=== PATIENT | female | born 1990 | race American Indian/Alaskan Native ===

== ENCOUNTER 2016-12-04 17:40 | Emergency (ER) | payer SELFPAY ==
[2016-12-04 18:00] VITALS: BP 145/81; PULSE 77; RESP 16; TEMP 98.2; O2SAT 98
--- NOTE | 2016-12-04 18:53 | C.PDOC ---
History Of Present Illness 26 year old female presents to the ED with complaints of vague dizziness beginning yesterday. Patient states this is her third ER visit in the last 24 hours for the same complaint. Patient was seen at [facility] last night as well as this morning and had a full workup and EKG performed that were normal. She states she did not receive an adequate explanation of normal tests results at [place] and felt abnormal results were omitted from being mentioned to her. Patient notes she was given meclizine with no improvement and states she felt worse with that medication. She is taking multiple over the counter nasal sprays, flu and cold medications with various adverse effects. Patient denies chest pain, SOB, vomiting, or headache. Time Seen by Provider: 12/04/16 18:31 Chief Complaint (Nursing): Dizziness/Lightheaded Past Medical History Vital Signs: Last Vital Signs Temp 98.2 F 12/04/16 17:57 Pulse 77 12/04/16 17:57 Resp 16 12/04/16 17:57 BP 145/81 12/04/16 17:57 Pulse Ox 98 12/04/16 21:47 Family History: States: Unknown Family Hx - Social History Hx Alcohol Use: No Hx Substance Use: No - Immunization History Hx Tetanus Toxoid Vaccination: No Hx Influenza Vaccination: No Hx Pneumococcal Vaccination: No Physical Exam - Physical Exam Appears: Non-toxic, No Acute Distress (patient appears asymptomatic ), Other ( Anxious black female with pressured speech. Circumloquacious history provided.) Skin: Warm, Dry Head: Atraumatic Eye(s): bilateral: Normal Inspection, PERRL, EOMI Ear(s): Bilateral: Normal Nose: Normal Oral Mucosa: Moist Throat: Normal, No Erythema, No Exudate Neck: Supple Chest: Symmetrical, No Deformity Cardiovascular: Rhythm Regular Respiratory: Normal Breath Sounds, No Rhonchi, No Wheezing Gastrointestinal/Abdominal: Soft, No Tenderness, No Distention, No Guarding, No Rebound Extremity: Normal ROM, No Tenderness, No Calf Tenderness, No Swelling Neurological/Psych: Oriented x3 Gait: Steady (stable gait) ED Course And Treatment O2 Sat by Pulse Oximetry: 98 (room air ) Medical Decision Making Medical Decision Makinrd ED visit in 24 hours, just left [facility] ED normal w/u including normal head CT pt feels she didn't have her normal w/u appropriately explained to her Today's visit with [facility] normal eval pressured speech and circumlocutious history/throughts have me considering underlying anxiety issues vs mild viral syndrome Again, normal w/u thoroughly explained and pt reassured. Pt and friend/partner @ bedside mollified. Disposition Doctor Will See Patient In The: Office Counseled Patient/Family Regarding: Studies Performed, Diagnosis - Disposition Referrals: [facility] [Outside] [facility] [Outside] Disposition: HOME/ ROUTINE Disposition Time: 18:53 Condition: GOOD Additional Instructions: rest and hydration @ home. Advance diet slowly Avoid Meclizine if it makes your more dizzy. Instructions: Viral Syndrome (ED), Dizziness (ED) Forms: [employer] (Ma[place]) - Clinical Impression Clinical Impression: Dizziness - Scribe Statement The provider has reviewed the documentation as recorded by the Scribe Jessica Jackson All medical record entries made by the Scribe were at my direction and personally dictated by me. I have reviewed the chart and agree that the record accurately reflects my personal performance of the history, physical exam, medical decision making, and the department course for this patient. I have also personally directed, reviewed, and agree with the discharge instructions and disposition.
== END 2016-12-04 18:53 | disposition home or self-care (01) ==
LOC: C.ER 17:40
DX: R42 Dizziness and giddiness (principal)

== ENCOUNTER 2016-12-09 10:40 | Inpatient (IN) | payer MEDICAID, OTHER ==
--- NOTE | 2016-12-09 11:02 | C.PDOC ---
History Of Present Illness Patient is a 26 y/o F presenting with complaint "shaking legs." Patient reports 1 week history of dizziness and lighthededness that she reports is now resolved. She was been evaluated in [facility] 5 times since 12/03 for lightheadedness and dizziness and has had negative CT head x 2, negative blood work and xrays and was discharged on meclizine. She has also had MRI head done at [facility] that was normal. She saw her PMD Dr. Hsu today who referred her to ED for worsening gait. Denies urinary or bowel incontinence. Denies trauma. Denies neck pain. Denies fever. Denies recent travel. Time Seen by Provider: 12/09/16 10:51 Chief Complaint (Nursing): Weakness/Neurological Deficit Past Medical History Vital Signs: Last Vital Signs Temp 98.4 F 12/09/16 10:44 Pulse 69 12/09/16 10:44 Resp 18 12/09/16 10:44 BP 130/92 H 12/09/16 10:44 Pulse Ox 100 12/09/16 12:10 Family History: States: Unknown Family Hx - Social History Hx Alcohol Use: Yes Hx Substance Use: No - Immunization History Hx Tetanus Toxoid Vaccination: No Hx Influenza Vaccination: No Hx Pneumococcal Vaccination: No Review Of Systems Constitutional: Negative for: Fever, Chills Cardiovascular: Negative for: Chest Pain, Palpitations, Orthopnea, Edema, Light Headedness Respiratory: Negative for: Cough, Shortness of Breath, SOB with Excertion, Wheezing Gastrointestinal: Negative for: Nausea, Vomiting, Abdominal Pain, Diarrhea, Constipation Genitourinary: Negative for: Dysuria, Incontinence Musculoskeletal: Negative for: Neck Pain Neurological: Positive for: Incoordination (shaking of legs with ambulation). Negative for: Weakness, Numbness, Change in Speech, Seizures, Altered Mental Status, Headache, Dizziness Physical Exam - Physical Exam Appears: Well, Non-toxic, No Acute Distress Skin: Normal Color, Warm, Dry Head: Atraumatic, Normacephalic Eye(s): bilateral: Normal Inspection, PERRL, EOMI Neck: Normal, Supple Chest: Symmetrical Cardiovascular: Rhythm Regular Respiratory: Normal Breath Sounds, No Rales, No Rhonchi, No Wheezing Gastrointestinal/Abdominal: Soft, No Tenderness, No Distention Back: Normal Inspection, No CVA Tenderness Extremity: Normal ROM, No Tenderness, Other (normal strength when lying in stretcher. ) Pulses: Left Dorsalis Pedis: Normal, Right Dorsalis Pedis: Normal Neurological/Psych: Oriented x3, Normal Speech, Normal Cognition, Normal Cranial Nerves, Normal Motor (full strength), Normal Sensation, Other (normal finger to nose) Gait: Unsteady (shaking of legs with ambulating. shaking resolves when standing. ) ED Course And Treatment - Laboratory Results Result Diagrams: 12/09/16 11:30 12/09/16 11:30 O2 Sat by Pulse Oximetry: 100 Medical Decision Making Medical Decision Making: Patient is complaining of changes in gait. Normal strength when standing and lying down but shaking of legs when ambulating. Otherwise neuro intact. Extensive workup including MRI head negative. Spoke to Dr. Hsu. He is requesting neuro consult (Dr. Elena) to evaluate if there is organic cause for symptoms. Requesting MRI lumbar and sacral spine. Disposition - Disposition Disposition: HOSPITALIZED Disposition Time: 10:44 Condition: FAIR - Clinical Impression Clinical Impression: Gait abnormality
[2016-12-09] MEDS ORDERED: Sodium Chloride 0.9% 1,000 ML IV ONE (11:05)
[2016-12-09 11:36] LABS: BASO % 1.2 % (0.0-2.0); EOS # 0.1 K/uL (0.0-0.7); EOS % 1.7 % (0.0-4.0); HEMATOCRIT 39.2 % (34.0-47.0); LYMPH # 1.8 K/uL (1.0-4.3); LYMPH % 44.5 % (20.0-40.0); MEAN CELL VOLUME 89.7 fL (81.0-99.0); MEAN CORPUSCULAR HGB CONC 33.5 g/dL (33.0-37.0); MEAN PLATELET VOLUME 9.5 fL (7.2-11.7); MONO # 0.4 K/uL (0.0-0.8); MONO % 10.1 % (0.0-10.0); NRBC % 0.1 % (0.0-2.0); WHITE BLOOD COUNT 3.9 K/uL (4.8-10.8)
[2016-12-09 11:46] LABS: RBC URINE 8 /hpf (0-3); URINE BILIRUBIN NEGATIVE (NEGATIVE); URINE BLOOD 1+ (NEGATIVE); URINE COLOR Yellow (YELLOW); URINE GLUCOSE (UA) NORMAL (Normal); URINE KETONE NEGATIVE (NEGATIVE); URINE LEUKOCYTE ESTERASE NEG Leu/uL (Negative); URINE PROTEIN NEGATIVE (NEGATIVE); URINE UROBILINOGEN NORMAL mg/dL (0.2-1.0); WBC URINE 2 /hpf (0-5)
[2016-12-09 11:49] LABS: ALB/GLOB RATIO 1.1 (1.0-2.1); ALKALINE PHOSPHATASE 94 U/L (38-126); ALT/SGPT 42 U/L (9-52); AST/SGOT 42 U/L (14-36); BILIRUBIN,TOTAL 0.6 mg/dL (0.2-1.3); BLOOD UREA NITROGEN 4 mg/dL (7-17); CARBON DIOXIDE 25 mmol/L (22-30); CHLORIDE 101 mmol/L (98-107); GFR AFRICAN-AMERICAN > 60; GLUCOSE,RANDOM 94 mg/dL (65-105); MAGNESIUM 1.7 mg/dL (1.6-2.3); PHOSPHOROUS 3.7 mg/dL (2.5-4.5); POTASSIUM 4.4 mmol/L (3.6-5.2); SODIUM 140 mmol/L (132-148); TOTAL PROTEIN 8.1 g/dL (6.3-8.3)
--- NOTE | 2016-12-09 14:40 | MRI ---
PROCEDURE: MR LUMBAR SPINE WITHOUT CONTRAST HISTORY: difficulty walking COMPARISON: None available. TECHNIQUE: Multiecho multiplanar sequences were performed through the lumbar spine without the use of intravenous contrast. FINDINGS: Normal lumbar curvature appreciate. There is no fracture or spondylolisthesis or suspicious marrow signal change appreciated vertebral bodies are normal in height. L5-S1 intervertebral disc space is slightly diminished in height but the intervertebral discs appear adequately hydrated nevertheless. Conus medullaris is normal terminating at T12-L1 disc interspace level with prevertebral paraspinal soft tissues appear diffusely unremarkable. T12-L1: No disc herniation, spinal canal stenosis or neural foraminal narrowing. L1-2: No disc herniation, spinal canal stenosis or neural foraminal narrowing. L2-3: No disc herniation, spinal canal stenosis or neural foraminal narrowing. L3-4: No disc herniation, spinal canal stenosis or neural foraminal narrowing. L4-5: No disc herniation, spinal canal stenosis or neural foraminal narrowing. Limited disc bulging is appreciated as well as mild facet joint degenerate change bilaterally. L5-S1: No disc herniation, spinal canal stenosis or neural foraminal narrowing. Limited disc bulging is appreciate without stenosis. Bilateral mild facet joint degenerative arthropathy is also identified. OTHER FINDINGS: None. IMPRESSION: No disc herniation, central canal or neural foraminal stenosis appreciated with limited disc bulging noted at L4-5 as well as L5-S1. Central canal appears widely patent throughout.
[2016-12-09] MEDS ORDERED: MethylPREDNISolone 40 mg Vial IVP STA (16:21)
[2016-12-10 06:23] LABS: BASO % 0.2 % (0.0-2.0); LYMPH # 1.8 K/uL (1.0-4.3); LYMPH % 29.7 % (20.0-40.0); MEAN CELL VOLUME 88.6 fL (81.0-99.0); MEAN CORPUSCULAR HEMOGLOBIN 30.3 pg (27.0-31.0); MEAN CORPUSCULAR HGB CONC 34.2 g/dL (33.0-37.0); MEAN PLATELET VOLUME 9.9 fL (7.2-11.7); MONO # 0.6 K/uL (0.0-0.8); MONO % 9.5 % (0.0-10.0); RED CELL DISTRIBUTION WIDTH 14.2 % (11.5-14.5); WHITE BLOOD COUNT 6.1 K/uL (4.8-10.8)
[2016-12-10 06:37] LABS: ALB/GLOB RATIO 1.3 (1.0-2.1); ALKALINE PHOSPHATASE 83 U/L (38-126); ALT/SGPT 47 U/L (9-52); AST/SGOT 41 U/L (14-36); BILIRUBIN,TOTAL 0.3 mg/dL (0.2-1.3); BLOOD UREA NITROGEN 5 mg/dL (7-17); CALCIUM 9.5 mg/dl (8.6-10.4); CARBON DIOXIDE 25 mmol/L (22-30); CHLORIDE 101 mmol/L (98-107); GFR AFRICAN-AMERICAN > 60; GLUCOSE,RANDOM 111 mg/dL (65-105); POTASSIUM 4.4 mmol/L (3.6-5.2); SODIUM 138 mmol/L (132-148); TOTAL PROTEIN 7.4 g/dL (6.3-8.3)
--- NOTE | 2016-12-10 07:51 | CON ---
DATE: 12/09/2016 LOCATION: The patient is in room number 350, bed 1. REASON FOR CONSULTATION: Intractable back pain. CHIEF COMPLAINT: The patient was brought into [facility] due to her shaky legs and weakness of the legs. From neurological point of view, I was called in to evaluate her for further management. HISTORY OF PRESENT ILLNESS: The patient is a 26-year-old right-handed -[place] female, presenting with a 10 days' history of dizziness and visual disturbances which was resolved. She went to [facility], there she had MRI of the brain, and she was discharged, and also she did have ENT evaluation as well. She was discharged with no diagnosis. She developed lower back pain. She claims that lower back pain with weakness of her legs with inability to walk. No history of headache. No history of neck pain. No history of significant back pain. No history of bowel or bladder incontinence. No history of fall. No history of previous trauma. No history of involuntary movement or loss of consciousness. No history of recent travel. No history of recent vaccination or blood transfusion. PAST MEDICAL HISTORY: Unremarkable. PERSONAL HISTORY: Denies smoking, alcohol use. No history of using illicit drugs. 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 REVIEW OF SYSTEMS: A 12-point system been reviewed. From neurological system, the patient does have shaky legs as well as weakness of her legs. MEDICATIONS: Famotidine. PHYSICAL EXAMINATION VITAL SIGNS: Blood pressure 126/79, mean arterial pressure of 94, respiratory rate 18, temperature 98.4, pulse rate 71, regular. NECK: Supple. No carotid bruits. HEART: S1 and S2. LUNGS: Fair air entry. EXTREMITIES: No edema in legs. NEUROLOGICAL: Mental status examination, she is examined in the presence of her friends. She is awake, alert, and oriented to person, place, and time. She is very cooperative in spite of her discomfortness, she does not show any emotional effect from her problem. Cranial nerve examination, visual field intact. Pupils reactive to light. Extraocular movement normal. No nystagmus. No facial sensory deficit. No facial asymmetry. Hearing is normal. Tongue is midline. Good gag. Motor examination, on outstretched hand, tremor on either side. In the lower extremities, iliopsoas, quadriceps, the hamstring, dorsiflexion, and plantarflexion of the foot all 5/5. Deep tendon reflexes, biceps, brachioradialis, triceps 1+, both knees are 2+, both ankles are 1+, trace. Plantars are downgoing. Sensory examination, grossly intact. No cortical sensory loss. Finger-nose test is intact. Gait, she was able to get up, but she could not able to stand straight. She stands with the knee bent and could not able to walk forward. On closing her eyes, she stays still in one place. She claims that she could not able to walk due to the pain and weakness. However, she does not fall on either side or tend to fall on either side. Examination of the spine, no tenderness noted. LABORATORY DATA: Workup, MRI of the brain, R/Ot any structural cause that could explain her problem. Blood workup, WBC 3.9, hemoglobin 13.1, hematocrit 39.2, platelet 218. Sodium 140, potassium 4.4, chloride 101, bicarbonate 25, BUN 4, creatinine 0.7, GFR more than 60, bilirubin 0.6, AST 48. Urine shows 1+ blood. Urine hCG is negative. RECOMMENDATION: 1. The patient should have urine tox screen. 2. The patient can be benefited with nonsteroidal antiinflammatory drugs with muscle relaxants. I do not think she needs any further workup. Reassurance was given. The patient advised to attempt to get out of the bed and walk with supervision. Maybe the patient can get Valium tonight to relieve her muscle spasm. Jesus Elena MD MTDD
--- NOTE | 2016-12-10 09:56 | CON ---
DATE OF EVALUATION: 12/10/2016 TIME OF EVALUATION: 06:55 a.m. NEUROLOGICAL PROBLEM: Intractable back pain and weakness of her leg. SUBJECTIVE: The patient is sleeping, easily arousable on calling her name; complaining of lower back pain. She did not get sleep until 12 o'clock. At present, she denies any new weakness of her legs. PHYSICAL EXAMINATION: VITAL SIGNS: Blood pressure 112/72, mean arterial pressure of 85, respiratory rate 18, temperature 98.2, pulse rate 71, regular. Examination is unchanged to compare with my yesterday's examination. BLOOD WORKUP: C-reactive protein is 2.85. No sign of infectious source. The rest of the workup is in progress. MEDICATIONS: She can be taken symptomatic relief from nonsteroidal antiinflammatory drug, muscle relaxant. If medically stable, the patient can be discharged and should have followup with me as an outpatient. Jesus Elena MD
[2016-12-10] MEDS: Naproxen 550 mg Tab PO PRN (12:09)
--- NOTE | 2016-12-11 13:08 | CP.PCM.PN ---
Subjective - Date & Time of Evaluation Date of Evaluation: 12/11/16 Time of Evaluation: 13:08 Objective - Vital Signs/Intake and Output Vital Signs (last 24 hours): Temp Pulse Resp BP Pulse Ox 98 F 83 20 108/67 100 12/11/16 09:02 12/11/16 09:02 12/11/16 09:02 12/11/16 09:02 12/11/16 09:02 Intake and Output: 12/11/16 12/11/16 06:59 18:59 Intake Total 360 180 Balance 360 180 - Medications Medications: Current Medications Baclofen (Lioresal) 10 mg PO DAILY [facility] Cyclobenzaprine HCl (Flexeril) 5 mg PO BID [facility] Last Admin: 12/11/16 10:39 Dose: 5 mg Diazepam (Valium) 5 mg PO HS [facility] Last Admin: 12/10/16 22:15 Dose: 5 mg Famotidine (Pepcid) 20 mg IVP Q12 [facility] Last Admin: 12/11/16 10:38 Dose: 20 mg Naproxen (Anaprox Ds) 550 mg PO TID PRN Last Admin: 12/10/16 12:09 Dose: 550 mg Pneumococcal Polyvalent Vaccine (Pneumovax 23 Vaccine) 0.5 ml IM .ONCE ONE Stop: 12/12/16 10:01 - Labs Labs: 12/10/16 06:15 12/10/16 06:15
[2016-12-12 07:09] LABS: HEMATOCRIT 36.8 % (34.0-47.0); MEAN CELL VOLUME 89.6 fL (81.0-99.0); MEAN CORPUSCULAR HEMOGLOBIN 29.9 pg (27.0-31.0); MEAN CORPUSCULAR HGB CONC 33.3 g/dL (33.0-37.0); MEAN PLATELET VOLUME 9.5 fL (7.2-11.7); RED CELL DISTRIBUTION WIDTH 14.4 % (11.5-14.5); WHITE BLOOD COUNT 6.7 K/uL (4.8-10.8)
[2016-12-12 07:19] LABS: BLOOD UREA NITROGEN 11 mg/dL (7-17); CALCIUM 9.3 mg/dl (8.6-10.4); CARBON DIOXIDE 28 mmol/L (22-30); CHLORIDE 101 mmol/L (98-107); GFR AFRICAN-AMERICAN > 60; GLUCOSE,RANDOM 87 mg/dL (65-105); SODIUM 137 mmol/L (132-148)
[2016-12-12 07:48] LABS: THYROID STIMULATING HORMONE 1.09 mIU/L (0.46-4.68)
[2016-12-12] MEDS ORDERED: Pneumococcal 23-Valent Vaccine IM ONE (10:00)
[2016-12-13 08:46] VITALS: RESP 20
--- NOTE | 2016-12-13 14:49 | PCM.PSYCH ---
Initial Psychiatric Evaluation - Initial Psychiatric Evaluation Type of Admission: Voluntary Legal Status: Capacity Chief Complaint (in patient's own words): "Dizzy" History of Present Illness and Precipitating Events: The pt is seen, chart reviewed and case discussed Consult was asked to rule out pyschogenic causes This is a 26 yo AAF, single with 2 children aged 9 and 11 (one with MGM, the pther w father) She says she is now unemployed bc she had to leave her job due to an eczema- like lesion in her hands (not present now) and that she had applied to disability but denied. Lives alone with 2 children She admits to having panic attacks and mild depressive sxs but she has vague somatic sxs too - numbness, weakness, aches and pains. She denies SI, AVH or delusions She also denies drug, alcohol use but smokes MJ sometimes. Sleeps poorly Her stressors are unemployment, money and her BF's murder few years ago. Past psych hx: Denies Medical hx: Denies Family psych hx: Denies Current Medications: Active Medications Generic Name Dose Route Start Last Admin Trade Name Freq PRN Reason Stop Dose Admin Baclofen 10 mg 12/11/16 13:15 12/13/16 09:35 Lioresal PO 10 mg DAILY [facility] Administration Diazepam 5 mg 12/09/16 22:00 12/12/16 21:45 Valium PO 5 mg HS [facility] Administration Famotidine 20 mg 12/11/16 22:00 12/13/16 09:35 Pepcid PO 20 mg Q12 [facility] Administration Naproxen 550 mg 12/10/16 10:00 12/10/16 12:09 Anaprox Ds PO 550 mg TID PRN Administration Past Psychiatric History - Past Psychiatric History Previous Treatment History: None Pertinent Medical Hx (Current Medical&Sleep Prob, Allergies): Allergies Allergy/AdvReac Type Severity Reaction Status Date / Time No Known Allergies Allergy Verified 12/08/16 00:51 Macrobid 1 tab PO BID 12/09/16 Review of Systems - Neurological Neurological: Weakness - Psychiatric Psychiatric: Abnormal Sleep Pattern, Anxiety. absent: Homicidal Ideation, Paranoia, Suicidal Ideation Mental Status Examination - Personal Presentation Personal Presentation: Looks stated age - Affect Affect: Constricted - Motor Activity Motor Activity: Calm - Reliability in Providing Information Reliability in Providing Information: Good - Speech Speech: Organized - Mood Mood: Anxious - Formal Thought Process Formal Thought Process: No Impairment - Cognitive Functions Orientation: Person, Place, Situation, Time Sensorium: Alert Attention/Concentration: Attentive Estimate of Intelligence: Average Judgement: Intact, as evidence by: Insight regarding need for hospitalization Memory: Recent intact, as evidence by: Ability to recall events of the day, Remote intact, as evidenced by: Abilit to recall sig. 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
--- NOTE | 2016-12-13 20:27 | CP.PCM.HP ---
History of Present Illness - History of Present Illness History of Present Illness: Chief complaint: Unable to walk History present illness: 26-year-old with no past medical history came to the office yesterday with the complaining of not able to walk. Gradually over the course of 1 month the patient has increasing symptoms of leg cramps, leg pain, and not able to stand up and walk properly. Patient went to the emergency room multiple times at [facility]. And the patient underwent extensive workup. But there was no organic disease identified. Patient was given pain medications. Also was noted to have UTI. Patient did not have any headache, no chest pain. She did not have any other major active symptoms. Prior to this episode of patient was normal, and she was doing her activities normally. All of a sudden she developed this trouble. She is having sensation in the legs. But unable to stand up and walk. When she is walking she is bending the hips as well as in the knees, and wobbling. Past medical history none Allergies: No known drug allergy Personal history: Nonsmoker nonalcoholic. Surgical history . Family history significant for heart disease Review of system: Notified from the chart Vital signs reviewed No neck vein distention noted Chest good air entry bilaterally, no wheezing or rales noted CVS regular heart sound, no murmur noted Abdomen soft, nontender. Extremities no pedal edema [employer] SCIENT[employer] alert awake oriented 3, no functional neurological deficit Ambulation is extremely difficult. When lying down patient is having some tremor. 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 Neurologic evaluation, a lumbosacral MRI. Patient medications. Physical therapy will follow the patient Present on Admission - Present on Admission Any Indicators Present on Admission: No History of DVT/PE: No History of Uncontrolled Diabetes: No Urinary Catheter: No Decubitus Ulcer Present: No Past Patient History - Infectious Disease Hx of Infectious Diseases: None - Past Medical History & Family History Past Medical History?: No - Past Social History Smoking Status: quit 10day - MUSCULOSKELETAL/RHEUMATOLOGICAL Hx Falls: No - PSYCHIATRIC Hx Substance Use: No - SURGICAL HISTORY Hx Surgeries: Yes Hx Section: Yes (x2) - ANESTHESIA Hx Anesthesia: Yes Hx Anesthesia Reactions: No Hx Malignant Hyperthermia: No Meds Allergies/Adverse Reactions: Allergies Allergy/AdvReac Type Severity Reaction Status Date / Time No Known Allergies Allergy Verified 12/08/16 00:51 Results - Vital Signs Recent Vital Signs: Last Vital Signs Temp 98.8 F 12/13/16 15:00 Pulse 71 12/13/16 15:00 Resp 20 12/13/16 15:00 BP 112/84 12/13/16 15:00 Pulse Ox 99 12/13/16 15:00 - Labs Result Diagrams: 12/12/16 07:01 12/12/16 07:01
--- NOTE | 2016-12-13 20:28 | CP.PCM.PN ---
Subjective - Date & Time of Evaluation Date of Evaluation: 12/12/16 Time of Evaluation: 20:28 - Subjective Subjective: Still continues to have the similar symptoms. Neurological point of view patient is stable. Patient still needing ambulation with the walker. Physical therapy No pain. Patient is otherwise feeling better. Awaiting for psychiatric consultation Objective - Vital Signs/Intake and Output Vital Signs (last 24 hours): Temp Pulse Resp BP Pulse Ox 98.8 F 71 20 112/84 99 12/13/16 15:00 12/13/16 15:00 12/13/16 15:00 12/13/16 15:00 12/13/16 15:00 Intake and Output: 12/13/16 12/14/16 18:59 06:59 Intake Total 680 Balance 680 - Medications Medications: Current Medications Baclofen (Lioresal) 10 mg PO DAILY [facility] Last Admin: 12/13/16 09:35 Dose: 10 mg Clonazepam (Klonopin) 0.5 mg PO DAILY PRN PRN Reason: Anxiety Famotidine (Pepcid) 20 mg PO Q12 [facility] Last Admin: 12/13/16 09:35 Dose: 20 mg Naproxen (Anaprox Ds) 550 mg PO TID PRN Last Admin: 12/10/16 12:09 Dose: 550 mg Sertraline HCl (Zoloft) 25 mg PO DAILY [facility] Last Admin: 12/13/16 16:49 Dose: 25 mg Trazodone HCl (Desyrel) 50 mg PO HS [facility] - Labs Labs: 12/12/16 07:01 12/12/16 07:01
--- NOTE | 2016-12-13 20:28 | CP.PCM.PN ---
Subjective - Date & Time of Evaluation Date of Evaluation: 12/11/16 Time of Evaluation: 20:28 - Subjective Subjective: Still continues to have the similar symptoms. Neurological point of view patient is stable. Patient still needing ambulation with the walker. Physical therapy No pain. Patient is otherwise feeling better. Awaiting for psychiatric consultation Objective - Vital Signs/Intake and Output Vital Signs (last 24 hours): Temp Pulse Resp BP Pulse Ox 98.8 F 71 20 112/84 99 12/13/16 15:00 12/13/16 15:00 12/13/16 15:00 12/13/16 15:00 12/13/16 15:00 Intake and Output: 12/13/16 12/14/16 18:59 06:59 Intake Total 680 Balance 680 - Medications Medications: Current Medications Baclofen (Lioresal) 10 mg PO DAILY [facility] Last Admin: 12/13/16 09:35 Dose: 10 mg Clonazepam (Klonopin) 0.5 mg PO DAILY PRN PRN Reason: Anxiety Famotidine (Pepcid) 20 mg PO Q12 [facility] Last Admin: 12/13/16 09:35 Dose: 20 mg Naproxen (Anaprox Ds) 550 mg PO TID PRN Last Admin: 12/10/16 12:09 Dose: 550 mg Sertraline HCl (Zoloft) 25 mg PO DAILY [facility] Last Admin: 12/13/16 16:49 Dose: 25 mg Trazodone HCl (Desyrel) 50 mg PO HS [facility] - Labs Labs: 12/12/16 07:01 12/12/16 07:01
--- NOTE | 2016-12-13 20:28 | CP.PCM.PN ---
Subjective - Date & Time of Evaluation Date of Evaluation: 12/13/16 Time of Evaluation: 20:28 - Subjective Subjective: Patient seen by psychiatrist today. On medications Patient is still having symptoms. We'll continue to monitor now. Overall prognosis is guarded. Vital signs reviewed No neck vein distention noted Chest good air entry bilaterally, no wheezing or rales noted CVS regular heart sound, no murmur noted Abdomen soft, nontender. Extremities no pedal edema [employer] alert awake oriented 3, no functional neurological deficit Vitals stable. Repeat labs in the morning. Possible discharge planning the morning Objective - Vital Signs/Intake and Output Vital Signs (last 24 hours): Temp Pulse Resp BP Pulse Ox 98.8 F 71 20 112/84 99 12/13/16 15:00 12/13/16 15:00 12/13/16 15:00 12/13/16 15:00 12/13/16 15:00 Intake and Output: 12/13/16 12/14/16 18:59 06:59 Intake Total 680 Balance 680 - Medications Medications: Current Medications Baclofen (Lioresal) 10 mg PO DAILY ON LICENSE OF [facility] Last Admin: 12/13/16 09:35 Dose: 10 mg Clonazepam (Klonopin) 0.5 mg PO DAILY PRN PRN Reason: Anxiety Famotidine (Pepcid) 20 mg PO Q12 ON LICENSE OF [facility] Last Admin: 12/13/16 09:35 Dose: 20 mg Naproxen (Anaprox Ds) 550 mg PO TID PRN Last Admin: 12/10/16 12:09 Dose: 550 mg Sertraline HCl (Zoloft) 25 mg PO DAILY ON LICENSE OF [facility] Last Admin: 12/13/16 16:49 Dose: 25 mg Trazodone HCl (Desyrel) 50 mg PO HS ON LICENSE OF [facility] - Labs Labs: 12/12/16 07:01 12/12/16 07:01
[2016-12-14 07:09] LABS: MEAN CORPUSCULAR HEMOGLOBIN 30.3 pg (27.0-31.0); MEAN CORPUSCULAR HGB CONC 34.1 g/dL (33.0-37.0); MEAN PLATELET VOLUME 9.4 fL (7.2-11.7); RED CELL DISTRIBUTION WIDTH 14.1 % (11.5-14.5); WHITE BLOOD COUNT 5.9 K/uL (4.8-10.8)
[2016-12-14 07:48] LABS: CHLORIDE 102 mmol/L (98-107); POTASSIUM 3.8 mmol/L (3.6-5.2); SODIUM 138 mmol/L (132-148)
[2016-12-14 07:50] LABS: ALKALINE PHOSPHATASE 86 U/L (38-126); AST/SGOT 74 U/L (14-36); BILIRUBIN,TOTAL 0.3 mg/dL (0.2-1.3); CARBON DIOXIDE 27 mmol/L (22-30); GFR AFRICAN-AMERICAN > 60
[2016-12-14 07:51] LABS: ALB/GLOB RATIO 1.2 (1.0-2.1); ALT/SGPT 82 U/L (9-52); BLOOD UREA NITROGEN 9 mg/dL (7-17); CALCIUM 8.7 mg/dl (8.6-10.4); GLUCOSE,RANDOM 87 mg/dL (65-105); MAGNESIUM 1.7 mg/dL (1.6-2.3); TOTAL PROTEIN 6.3 g/dL (6.3-8.3)
--- NOTE | 2016-12-14 21:27 | CP.PCM.PN ---
Subjective - Date & Time of Evaluation Date of Evaluation: 12/14/16 Time of Evaluation: 21:26 - Subjective Subjective: Today feeling much better. But the dizziness noted. Able to stand up. Still unable to walk good. Participated physical therapy. Vital signs reviewed No neck vein distention noted Chest good air entry bilaterally, no wheezing or rales noted CVS regular heart sound, no murmur noted Abdomen soft, nontender. Extremities no pedal edema [employer] alert awake oriented 3, no functional neurological deficit Labs reviewed Nonspecific mild elevation of the liver enzymes will monitor Bilateral leg weakness, and nonspecific. Mild clonus. On multiple muscle relaxants and pain medicines. Will follow the patient Objective - Vital Signs/Intake and Output Vital Signs (last 24 hours): Temp Pulse Resp BP Pulse Ox 98.4 F 71 20 119/74 99 12/14/16 15:00 12/14/16 15:00 12/14/16 15:00 12/14/16 15:00 12/14/16 15:00 Intake and Output: 12/14/16 12/15/16 18:59 06:59 Intake Total 480 Output Total 0 Balance 480 - Medications Medications: Current Medications Famotidine (Pepcid) 20 mg PO Q12 [facility] Last Admin: 12/14/16 21:23 Dose: 20 mg Naproxen (Anaprox Ds) 550 mg PO TID PRN Last Admin: 12/10/16 12:09 Dose: 550 mg Sertraline HCl (Zoloft) 25 mg PO DAILY [facility] Last Admin: 12/14/16 12:44 Dose: 25 mg Trazodone HCl (Desyrel) 50 mg PO HS [facility] Last Admin: 12/14/16 21:23 Dose: 50 mg - Labs Labs: 12/14/16 07:03 12/14/16 07:03
[2016-12-15 19:17] LABS: LYME IGM EQUIVOCAL (NEGATIVE)
[2016-12-15 19:41] LABS: LYME IGG NEGATIVE (NEGATIVE)
--- NOTE | 2016-12-16 07:51 | CP.PCM.PN ---
Subjective - Date & Time of Evaluation Date of Evaluation: 12/15/16 Time of Evaluation: 07:51 - Subjective Subjective: Is still feeling some symptoms of weakness in the legs. Walking is still lacking Clinical examination stable Assessment and recommendation: 26-year-old female came to the office and admitted to the hospital with the worsening bilateral leg weakness. And physical therapy will be continued for possible discharge plan once is stable Objective - Vital Signs/Intake and Output Vital Signs (last 24 hours): Temp Pulse Resp BP Pulse Ox 97.8 F 115 H 20 105/70 100 12/16/16 07:41 12/16/16 07:41 12/16/16 07:41 12/16/16 07:41 12/16/16 07:41 Intake and Output: 12/16/16 12/16/16 06:59 18:59 Intake Total 700 Balance 700 - Medications Medications: Current Medications Famotidine (Pepcid) 20 mg PO Q12 [facility] Last Admin: 12/15/16 21:12 Dose: 20 mg Naproxen (Anaprox Ds) 550 mg PO TID PRN Last Admin: 12/10/16 12:09 Dose: 550 mg Sertraline HCl (Zoloft) 50 mg PO DAILY [facility] Trazodone HCl (Desyrel) 50 mg PO HS [facility] Last Admin: 12/15/16 21:12 Dose: 50 mg - Labs Labs: 12/14/16 07:03 12/14/16 07:03
--- NOTE | 2016-12-16 12:11 | CP.PCM.PN ---
Subjective - Date & Time of Evaluation Date of Evaluation: 12/16/16 Time of Evaluation: 12:11 - Subjective Subjective: Is still feeling some symptoms of weakness in the legs. Walking is still lacking Clinical examination stable Assessment and recommendation: 26-year-old female came to the office and admitted to the hospital with the worsening bilateral leg weakness. And physical therapy will be continued for possible discharge plan once is stable Objective - Vital Signs/Intake and Output Vital Signs (last 24 hours): Temp Pulse Resp BP Pulse Ox 97.8 F 115 H 20 105/70 100 12/16/16 07:41 12/16/16 07:41 12/16/16 07:41 12/16/16 07:41 12/16/16 07:41 Intake and Output: 12/16/16 12/16/16 06:59 18:59 Intake Total 700 Balance 700 - Medications Medications: Current Medications Famotidine (Pepcid) 20 mg PO Q12 [facility] Last Admin: 12/16/16 10:45 Dose: 20 mg Naproxen (Anaprox Ds) 550 mg PO TID PRN Last Admin: 12/10/16 12:09 Dose: 550 mg Sertraline HCl (Zoloft) 50 mg PO DAILY [facility] Last Admin: 12/16/16 10:45 Dose: 50 mg Trazodone HCl (Desyrel) 50 mg PO HS [facility] Last Admin: 12/15/16 21:12 Dose: 50 mg - Labs Labs: 12/14/16 07:03 12/14/16 07:03
--- NOTE | 2016-12-17 09:43 | EEG ---
Resting electroencephalogram consist of 20-30 microvolt diffuse low-amplitude delta activities started in the beginning, which followed with 9 to 12 Hz sleep spindle activities noted with K-complexes consistent with N2 sleep. Noted this activity is somewhat organized to form 2-3 Hz high-amplitude delta activity seen which is consistent with early drowsiness. The whole study started from light drowsiness with N2 sleep. During the study, neither electroencephalographic paroxysmal activities nor focal slowing noted. IMPRESSION: This is a normal electroencephalogram of awake, drowsy and N2 sleep. During the study, neither electroencephalographic paroxysmal activities nor focal slowing noted. Jesus Elena MD
[2016-12-17] MEDS: Naproxen 550 mg Tab PO PRN (11:15)
--- NOTE | 2016-12-17 17:42 | CT ---
PROCEDURE: CT HEAD WITHOUT CONTRAST. HISTORY: weakness, blurry vision, headache COMPARISON: None available. TECHNIQUE: Axial computed tomography images were obtained through the head/brain without intravenous contrast. Radiation dose: Total exam DLP = 833.83 mGy-cm. This CT exam was performed using one or more of the following dose reduction techniques: Automated exposure control, adjustment of the mA and/or kV according to patient size, and/or use of iterative reconstruction technique. FINDINGS: HEMORRHAGE: No intracranial hemorrhage. BRAIN: No mass effect or edema. No atrophy or chronic microvascular ischemic changes. VENTRICLES: Unremarkable. No hydrocephalus. CALVARIUM: Unremarkable. PARANASAL SINUSES: Unremarkable as visualized. No significant inflammatory changes. MASTOID AIR CELLS: Unremarkable as visualized. No inflammatory changes. OTHER FINDINGS: None. IMPRESSION: No acute intracranial abnormalities. No significant findings to account for the clinical presentation.
--- NOTE | 2016-12-17 18:36 | CP.PCM.PN ---
Subjective - Date & Time of Evaluation Date of Evaluation: 12/17/16 Time of Evaluation: 09:30 - Subjective Subjective: Medicine Note- Hospitalist Service Patient was seen and examined at bedside. Patient reports that she feels that her legs are getting stronger. She is able to walk with assistance but is having with walking on stairs. Patient reports she has had a continuous headache for the past 2 days, that persists when she wakes up. She says the other day, she had temporary blurry vision. She was given Naproxen 550mg for it but said it did not help. No events overnight, per nursing. Objective - Vital Signs/Intake and Output Vital Signs (last 24 hours): Temp Pulse Resp BP Pulse Ox 98.4 F 73 20 117/74 99 12/17/16 16:00 12/17/16 16:00 12/17/16 16:00 12/17/16 16:00 12/17/16 16:00 Intake and Output: 12/17/16 12/17/16 06:59 18:59 Intake Total 600 Balance 600 - Medications Medications: Current Medications Famotidine (Pepcid) 20 mg PO Q12 [facility] Last Admin: 12/17/16 10:33 Dose: 20 mg Naproxen (Anaprox Ds) 550 mg PO TID PRN Last Admin: 12/17/16 11:15 Dose: 550 mg Sertraline HCl (Zoloft) 50 mg PO DAILY [facility] Last Admin: 12/17/16 10:33 Dose: 50 mg Trazodone HCl (Desyrel) 50 mg PO HS [facility] Last Admin: 12/16/16 22:03 Dose: 50 mg - Labs Labs: 12/14/16 07:03 12/14/16 07:03 - Constitutional Appears: Non-toxic, No Acute Distress - Head Exam Head Exam: ATRAUMATIC, NORMAL INSPECTION, NORMOCEPHALIC - Eye Exam Eye Exam: Normal appearance, PERRL Pupil Exam: NORMAL ACCOMODATION, PERRL - ENT Exam ENT Exam: Mucous Membranes Moist - Respiratory Exam Respiratory Exam: Clear to Ausculation Bilateral, NORMAL BREATHING PATTERN. absent: Rhonchi, Wheezes - Cardiovascular Exam Cardiovascular Exam: REGULAR RHYTHM, +S1, +S2 - GI/Abdominal Exam GI & Abdominal Exam: Soft, Normal Bowel Sounds. absent: Tenderness, Diminished Bowel Sounds, Hypoactive Bowel Sounds - Extremities Exam Extremities Exam: Normal Capillary Refill, Normal Inspection - Neurological Exam Neurological Exam: Alert, Awake, Oriented x3 - Psychiatric Exam Psychiatric exam: Normal Affect - Skin Skin Exam: Dry, Intact, Normal Color, Warm Assessment and Plan - Assessment and Plan (Free Text) Assessment: Lower Extremity Weakness Lumbar Spine MRI- 12/09/16- No disc herniation, central canal or neural foraminal stenosis Consult Neuro- Dr. Elena- per Dr. Elena ,treat witH NSAIDs and followup outpatient, no further workup needed Consult Psych- Dr. Tenorio- diagnosed with Panic disorder, Somatoform disorder, Cannabis use disorder. Started on Zoloft 50mg PO Daily. PRN klonopin and trazodone. Refer to [facility] Head CT- 12/17/16- negative Physical Therapy- currently recommending acute rehab- must be cleared to go home in order to discharge , as patient is not qualified for rehab per case management Lyme negative TSH WNL Headache Head CT- 12/17/16- negative Given Tylenol once Prophylactic Measure Pepcid 20mg PO Q12h SCDs
--- NOTE | 2016-12-18 16:27 | CP.PCM.PN ---
Subjective - Date & Time of Evaluation Date of Evaluation: 12/18/16 Time of Evaluation: 16:17 - Subjective Subjective: PGY1 Note for Dr. Faulkner HPI: Patient seen and examined at bedside. Doing well. States that her dizziness is getting much better. She was walking with a walker today with PT. States she feels much more stable on her feet. Says that her face is itchy after taking a medication. It was mild but I told her i would give her some PO Benadryl for symptomatic relief. No other complaints at this time. Objective - Vital Signs/Intake and Output Vital Signs (last 24 hours): Temp Pulse Resp BP Pulse Ox 98.1 F 72 20 108/66 100 12/18/16 08:17 12/18/16 08:17 12/18/16 08:17 12/18/16 08:17 12/18/16 08:17 Intake and Output: 12/18/16 12/18/16 06:59 18:59 Intake Total 400 360 Balance 400 360 - Medications Medications: Current Medications Famotidine (Pepcid) 20 mg PO Q12 [facility] Last Admin: 12/18/16 10:15 Dose: 20 mg Naproxen (Anaprox Ds) 550 mg PO TID PRN Last Admin: 12/17/16 11:15 Dose: 550 mg Sertraline HCl (Zoloft) 50 mg PO DAILY [facility] Last Admin: 12/18/16 10:15 Dose: 50 mg Trazodone HCl (Desyrel) 50 mg PO HS [facility] Last Admin: 12/17/16 21:35 Dose: 50 mg - Labs Labs: 12/14/16 07:03 12/14/16 07:03 - Constitutional Appears: Well, Non-toxic, No Acute Distress - Head Exam Head Exam: ATRAUMATIC, NORMAL INSPECTION, NORMOCEPHALIC - ENT Exam ENT Exam: Mucous Membranes Moist - Respiratory Exam Respiratory Exam: Clear to Ausculation Bilateral, NORMAL BREATHING PATTERN - Cardiovascular Exam Cardiovascular Exam: REGULAR RHYTHM - Rectal Exam Rectal Exam: NORMAL INSPECTION - Neurological Exam Neurological Exam: Alert, Awake, Oriented x3 - Psychiatric Exam Psychiatric exam: Normal Affect, Normal Mood - Skin Skin Exam: Dry, Intact, Normal Color, Warm Assessment and Plan - Assessment and Plan (Free Text) Assessment: Lower Extremity Weakness * Lumbar Spine MRI: (12/09/16) No disc herniation, central canal or neural foraminal stenosis * Neuro ([facility]) * NSAIDs * Follow up outpatient * Psych ([place]) * Panic disorder * Somatoform disorder * Cannabis use disorder * Zoloft 50mg PO QD * Klonopin/Trazodone PRN * Refer to [facility] * Head CT: (12/17/16) negative * Physical Therapy reccs * Acute rehab * Must be cleared to go home in order to D/c * Case management says cant get rehab * Lyme negative * TSH WNL Headache Head CT: (12/17/16) negative PPX * Pepcid 20mg PO BID * SCDs
[2016-12-18] MEDS ORDERED: DiphenhydrAMINE 12.5 mg/5 ml LIQ UD (5 ml) PO STA (16:37)
--- NOTE | 2016-12-19 12:49 | CP.PCM.PN ---
<AugustaDeepak kline - Last Filed: 12/19/16 12:46> Subjective - Date & Time of Evaluation Date of Evaluation: 12/19/16 Time of Evaluation: 12:46 - Subjective Subjective: PGY1 Note for Dr. Nur HPI: Patient seen and examined at bedside. Doing well. Sitting up in bed talking to her sister. Complaining of itching in her face and that her nose is stuffy. She says she has not walked yet today and is waiting for PT. Besides that she has no other complaints at this time. Patient looked very comfortable. Objective - Vital Signs/Intake and Output Vital Signs (last 24 hours): Temp Pulse Resp BP Pulse Ox 98.2 F 66 20 106/70 99 12/19/16 08:47 12/19/16 08:47 12/19/16 08:47 12/19/16 08:47 12/19/16 08:47 Intake and Output: 12/19/16 12/19/16 06:59 18:59 Intake Total 640 Balance 640 - Medications Medications: Current Medications Diphenhydramine HCl (Benadryl) 12.5 mg PO STAT [facility] Stop: 12/19/16 12:46 Famotidine (Pepcid) 20 mg PO Q12 [facility] Last Admin: 12/19/16 12:08 Dose: 20 mg Loratadine (Claritin) 10 mg PO ONCE ONE Stop: 12/19/16 12:46 Naproxen (Anaprox Ds) 550 mg PO TID PRN Last Admin: 12/17/16 11:15 Dose: 550 mg Sertraline HCl (Zoloft) 50 mg PO DAILY [facility] Last Admin: 12/19/16 12:08 Dose: 50 mg Trazodone HCl (Desyrel) 50 mg PO HS [facility] Last Admin: 12/18/16 21:23 Dose: 50 mg - Labs Labs: 12/14/16 07:03 12/14/16 07:03 - Constitutional Appears: Well, Non-toxic, No Acute Distress - Head Exam Head Exam: ATRAUMATIC, NORMAL INSPECTION, NORMOCEPHALIC - ENT Exam ENT Exam: Mucous Membranes Moist - Respiratory Exam Respiratory Exam: Clear to Ausculation Bilateral, NORMAL BREATHING PATTERN. absent: Rales, Rhonchi, Wheezes, Stridor - Cardiovascular Exam Cardiovascular Exam: REGULAR RHYTHM. absent: Gallop, JVD, Rubs, Murmur - GI/Abdominal Exam GI & Abdominal Exam: Soft, Normal Bowel Sounds. absent: Distended, Tenderness - Neurological Exam Neurological Exam: Alert, Awake, Oriented x3 - Psychiatric Exam Psychiatric exam: Normal Affect, Normal Mood - Skin Skin Exam: Dry, Intact, Normal Color, Warm Assessment and Plan - Assessment and Plan (Free Text) Assessment: Lower Extremity Weakness * Lumbar Spine MRI: (12/09/16) No disc herniation, central canal or neural foraminal stenosis * Neuro ([facility]) * NSAIDs * Follow up outpatient * Psych ([facility]) * Panic disorder * Somatoform disorder * Cannabis use disorder * Zoloft 50mg PO QD * Klonopin/Trazodone PRN * [facility]er to [facility] * Head CT: (12/17/16) negative * Physical Therapy reccs * Acute rehab * Must be cleared to go home in order to D/c * Case management says cant get rehab * Lyme negative * TSH WNL Headache * Head CT: (12/17/16) negative PPX * Pepcid 20mg PO BID * SCDs Patient complainnig that her face is itchy and that she is stuffy, I ordered Benadryl and Claritin. Waiting for PT to clear the patient <Bert Nur - Last Filed: 12/19/16 19:30> Objective - Vital Signs/Intake and Output Vital Signs (last 24 hours): Temp Pulse Resp BP Pulse Ox 99.1 F 71 20 108/61 99 12/19/16 15:00 12/19/16 15:00 12/19/16 15:00 12/19/16 15:00 12/19/16 15:00 Intake and Output: 12/19/16 12/20/16 18:59 06:59 Intake Total 300 Output Total 500 Balance -200 - Medications Medications: Current Medications Famotidine (Pepcid) 20 mg PO Q12 [facility] Last Admin: 12/19/16 12:08 Dose: 20 mg Naproxen (Anaprox Ds) 550 mg PO TID PRN Last Admin: 12/17/16 11:15 Dose: 550 mg Sertraline HCl (Zoloft) 50 mg PO DAILY [facility] Last Admin: 12/19/16 12:08 Dose: 50 mg Trazodone HCl (Desyrel) 50 mg PO HS [facility] Last Admin: 12/18/16 21:23 Dose: 50 mg - Labs Labs: 12/14/16 07:03 12/14/16 07:03 Attending/Attestation - Attestation I have personally seen and examined this patient.: Yes I have fully participated in the care of the patient.: Yes I have reviewed all pertinent clinical information, including history, physical exam and plan: Yes Notes (Text): 12/19/16 19:[address] Olesya Hsu Patient was seen and examined at 3:40 PM 12/19/16 352 A Upon FULL ROS: Some itchiness of the face and nasal congestion NO other complaints Exam: Unremarkable Skin of Feet: bilateral heal fungal infection? Witnessed patient get up out of bed without help and walk with the rolling walker without assistance Plan: will need clearance from PT prior to discharging patient Bert Nur D.O.
[2016-12-19] MEDS ORDERED: DiphenhydrAMINE 12.5 mg/5 ml LIQ UD (5 ml) PO ONE (13:00)
[2016-12-20] MEDS: Naproxen 550 mg Tab PO PRN (15:06)
--- NOTE | 2016-12-20 16:21 | CP.PCM.PN ---
<Yinka Portillo - Last Filed: 12/20/16 16:22> Subjective - Date & Time of Evaluation Date of Evaluation: 12/20/16 Time of Evaluation: 10:00 - Subjective Subjective: PGY-[address] Bert Nur Patient seen and examined at bedside. Patient reports feeling better today and complains only of nasal irritation. Patient reports improvement in bilateral leg weakness. Patient was later witnessed working with the physical therapist on stairs. Patient denies fever, chills, headache, dizziness, chest pain, SOB, abdominal pain, dysuria. Objective - Vital Signs/Intake and Output Vital Signs (last 24 hours): Temp Pulse Resp BP Pulse Ox 97.9 F 62 20 102/65 100 12/20/16 08:15 12/20/16 08:15 12/20/16 08:15 12/20/16 08:15 12/20/16 08:15 Intake and Output: 12/20/16 12/20/16 06:59 18:59 Intake Total 590 Balance 590 - Medications Medications: Current Medications Famotidine (Pepcid) 20 mg PO Q12 [facility] Last Admin: 12/20/16 10:02 Dose: 20 mg Naproxen (Anaprox Ds) 550 mg PO TID PRN Last Admin: 12/20/16 15:06 Dose: 550 mg Sertraline HCl (Zoloft) 50 mg PO DAILY [facility] Last Admin: 12/20/16 10:01 Dose: 50 mg Trazodone HCl (Desyrel) 50 mg PO HS [facility] Last Admin: 12/19/16 21:13 Dose: 50 mg - Labs Labs: 12/14/16 07:03 12/14/16 07:03 - Constitutional Appears: No Acute Distress - Head Exam Head Exam: ATRAUMATIC, NORMAL INSPECTION, NORMOCEPHALIC - Eye Exam Eye Exam: EOMI, PERRL - ENT Exam ENT Exam: Mucous Membranes Moist - Respiratory Exam Respiratory Exam: Clear to Ausculation Bilateral. absent: Rales, Rhonchi, Wheezes - Cardiovascular Exam Cardiovascular Exam: REGULAR RHYTHM, +S1, +S2 - GI/Abdominal Exam GI & Abdominal Exam: Soft, Normal Bowel Sounds. absent: Tenderness - Extremities Exam Extremities Exam: absent: Pedal Edema, Tenderness - Neurological Exam Neurological Exam: Alert, Awake, Oriented x3 Additional comments: Muscle strength in the lower extremities 5/5 bilaterally. - Skin Skin Exam: Dry, Intact, Normal Color, Warm Assessment and Plan - Assessment and Plan (Free Text) Plan: Lower Extremity Weakness * Lumbar Spine MRI: (12/09/16) No disc herniation, central canal or neural foraminal stenosis * Neuro ([facility]lices) * NSAIDs * Follow up outpatient * Psych ([place]) * Panic disorder * Somatoform disorder * Cannabis use disorder * Zoloft 50mg PO QD * Klonopin/Trazodone PRN * Refer to [facility] * Head CT: (12/17/16) negative * Physical Therapy reccs * Acute rehab--patient not eligible * Must be cleared to go home in order to D/c * Case management says cant get rehab * Lyme negative * TSH WNL Headache * Head CT: (12/17/16) negative Prophylactic Measure * Pepcid 20mg PO BID * SCDs * Claritin 10 mg PO daily for nasal issues 12/20: box office manager is working on Medicaid HMO for the patient which will allow her better access to physical therapy. I am told that Medicaid by itself will cause significant difficulty in securing physical therapy services for the patient. Case DW Dr. Marvel Portillo PGY-1 <Bert Nur - Last Filed: 12/20/16 20:23> Objective - Vital Signs/Intake and Output Vital Signs (last 24 hours): Temp Pulse Resp BP Pulse Ox 98.1 F 73 20 131/75 99 12/20/16 16:00 12/20/16 16:00 12/20/16 16:00 12/20/16 16:00 12/20/16 16:00 Intake and Output: 12/20/16 12/21/16 18:59 06:59 Intake Total 500 Balance 500 - Medications Medications: Current Medications Famotidine (Pepcid) 20 mg PO Q12 [facility] Last Admin: 12/20/16 10:02 Dose: 20 mg Loratadine (Claritin) 10 mg PO DAILY [facility] Last Admin: 12/20/16 17:09 Dose: 10 mg Naproxen (Anaprox Ds) 550 mg PO TID PRN Last Admin: 12/20/16 15:06 Dose: 550 mg Sertraline HCl (Zoloft) 50 mg PO DAILY [facility] Last Admin: 12/20/16 10:01 Dose: 50 mg Trazodone HCl (Desyrel) 50 mg PO HS [facility] Last Admin: 12/19/16 21:13 Dose: 50 mg - Labs Labs: 12/14/16 07:03 12/14/16 07:03 Attending/Attestation - Attestation I have personally seen and examined this patient.: Yes I have fully participated in the care of the patient.: Yes I have reviewed all pertinent clinical information, including history, physical exam and plan: Yes Notes (Text): 12/20/16 20:[address] Olesya Hsu Patient was seen and examined at 3:45 PM 12/20/16 352 A Upon FULL ROS: Some itchiness of the face and nasal congestion NO other complaints Exam: Unremarkable Skin of Feet: bilateral heal fungal infection? Witnessed patient get up out of bed without help and walk with the rolling walker without assistance 5/5 strength with flexion and extension against my resistance and 2/4 DTR of the bilateral LE Plan: cleared for discharge by PT (she will need rolling walker and cane). Machine Pecan Picker Shyann is working on arranging Home PT and once this is done then patient will be discharged to home. She will need to follow up with her PMD Dr. Hsu in 7 days and obtain referral for Psychiatrist (Dr. Schneider). Will provide Rx for Zoloft 50 mg PO 1x/day. Bert Nur D.O.
[2016-12-21 07:32] VITALS: TEMP 97.6; O2SAT 96
[2016-12-21 12:30] VITALS: BP 107/60; PULSE 80
--- NOTE | 2016-12-21 12:55 | CP.PCM.DIS ---
<Yinka Portillo - Last Filed: 12/21/16 14:47> Provider - Provider Date of Admission: 12/11/16 13:01 Attending physician: Gamaliel Chang MD Time Spent in preparation of Discharge (in minutes): 31 Diagnosis - Discharge Diagnosis (1) Lower extremity weakness Status: Acute (2) Headache Status: Acute (3) Somatoform disorder, unspecified Status: Acute (4) Prophylactic measure Status: Acute Hospital Course - Lab Results Lab Results: Most Recent Lab Values WBC 5.9 K/uL (4.8-10.8) 12/14/16 07:03 RBC 3.93 Mil/uL (3.80-5.20) 12/14/16 07:03 Hgb 11.9 g/dL (11.0-16.0) 12/14/16 07:03 Hct 35.0 % (34.0-47.0) 12/14/16 07:03 MCV 89.0 fL (81.0-99.0) 12/14/16 07:03 MCH 30.3 pg (27.0-31.0) 12/14/16 07:03 MCHC 34.1 g/dL (33.0-37.0) 12/14/16 07:03 RDW 14.1 % (11.5-14.5) 12/14/16 07:03 Plt Count 251 K/uL (130-400) 12/14/16 07:03 MPV 9.4 fL (7.2-11.7) 12/14/16 07:03 Neut % (Auto) 60.6 % (50.0-75.0) 12/10/16 06:15 Lymph % (Auto) 29.7 % (20.0-40.0) 12/10/16 06:15 Lee % (Auto) 9.5 % (0.0-10.0) 12/10/16 06:15 Eos % (Auto) 0.0 % (0.0-4.0) 12/10/16 06:15 Baso % (Auto) 0.2 % (0.0-2.0) 12/10/16 06:15 Neut # 3.7 K/uL (1.8-7.0) 12/10/16 06:15 Lymph # 1.8 K/uL (1.0-4.3) 12/10/16 06:15 Lee # 0.6 K/uL (0.0-0.8) 12/10/16 06:15 Eos # 0.0 K/uL (0.0-0.7) 12/10/16 06:15 Baso # 0.0 K/uL (0.0-0.2) 12/10/16 06:15 ESR 23 mm/hr (0-20) H 12/10/16 06:15 Sodium 138 mmol/L (132-148) 12/14/16 07:03 Potassium 3.8 mmol/L (3.6-5.2) 12/14/16 07:03 Chloride 102 mmol/L (98-107) 12/14/16 07:03 Carbon Dioxide 27 mmol/L (22-30) 12/14/16 07:03 Anion Gap 12 (10-20) 12/14/16 07:03 BUN 9 mg/dL (7-17) 12/14/16 07:03 Creatinine 0.7 MG/DL (0.7-1.2) 12/14/16 07:03 Est GFR ( Amer) > 60 12/14/16 07:03 Est GFR (Non-Af Amer) > 60 12/14/16 07:03 POC Glucose (mg/dL) 89 mg/dL (65-110) 12/09/16 11:37 Random Glucose 87 mg/dL (65-105) 12/14/16 07:03 Calcium 8.7 mg/dl (8.6-10.4) 12/14/16 07:03 Phosphorus 3.7 mg/dL (2.5-4.5) 12/09/16 11:30 Magnesium 1.7 mg/dL (1.6-2.3) 12/14/16 07:03 Total Bilirubin 0.3 mg/dL (0.2-1.3) 12/14/16 07:03 AST 74 U/L (14-36) H D 12/14/16 07:03 ALT 82 U/L (9-52) H D 12/14/16 07:03 Alkaline Phosphatase 86 U/L (38-126) 12/14/16 07:03 Total Creatine Kinase 73 U/L (30-135) 12/09/16 11:30 C-React Prot High Sens 2.85 mg/L (1.00-3.00) 12/10/16 06:15 Total Protein 6.3 g/dL (6.3-8.3) 12/14/16 07:03 Albumin 3.4 g/dL (3.5-5.0) L 12/14/16 07:03 Globulin 2.9 gm/dL (2.2-3.9) 12/14/16 07:03 Albumin/Globulin Ratio 1.2 (1.0-2.1) 12/14/16 07:03 TSH 3rd Generation 1.09 mIU/L (0.46-4.68) 12/12/16 07:01 Urine Color Yellow (YELLOW) 12/09/16 11:36 Urine Clarity Clear (Clear) 12/09/16 11:36 Urine pH 5.0 (5.0-8.0) 12/09/16 11:36 Ur Specific [place] 1.005 (1.003-1.030) 12/09/16 11:36 Urine Protein Negative mg/dL (NEGATIVE) 12/09/16 11:36 Urine Glucose (UA) Normal mg/dL (Normal) 12/09/16 11:36 Urine Ketones Negative mg/dL (NEGATIVE) 12/09/16 11:36 Urine Blood 1+ (NEGATIVE) H 12/09/16 11:36 Urine Nitrate Negative (NEGATIVE) 12/09/16 11:36 Urine Bilirubin Negative (NEGATIVE) 12/09/16 11:36 Urine Urobilinogen Normal mg/dL (0.2-1.0) 12/09/16 11:36 Ur Leukocyte Esterase Neg Keila/uL (Negative) 12/09/16 11:36 Urine WBC (Auto) 2 /hpf (0-5) 12/09/16 11:36 Urine RBC (Auto) 8 /hpf (0-3) H 12/09/16 11:36 Ur Squamous Epith Cells 1 /hpf (0-5) 12/09/16 11:36 Urine HCG, Qual Negative (NEGATIVE) 12/09/16 12:26 Lyme Disease IgG Ab (IFA) Negative (NEGATIVE) 12/14/16 07:03 Lyme Disease IgM Ab Equivocal (NEGATIVE) 12/14/16 07:03 - Hospital Course Hospital Course: On admission: "26-year-old with no past medical history came to the office yesterday with the complaining of not able to walk. Gradually over the course of 1 month the patient has increasing symptoms of leg cramps, leg pain, and not able to stand up and walk properly. Patient went to the emergency room [facility] at [facility]. And the patient underwent extensive workup. But there was no organic disease identified. Patient was given pain medications. Also was noted to have UTI. Patient did not have any headache, no chest pain. She did not have any other major active symptoms. Prior to this episode of patient was normal, and she was doing her activities normally. All of a sudden she developed this trouble. She is having sensation in the legs. But unable to stand up and walk. When she is walking she is bending the hips as well as in the knees, and wobbling." Hospital Course: Patient admitted for bilateral leg weakness. Lumbar MRI showed limited disc bulging at L4-L5 and L5-S1 but otherwise unremarkable. Dr. Elena (neurologist) was consulted. EEG read by Dr. Elena was normal, and he recommended that patient follow up with him outpatient. Dr. Tenorio (psychiatrist) was consulted, and he diagnosed patient's condition as a somatoform disorder. Dr. Tenorio recommended placing the patient on Zoloft with a target dose of 100-150 mg daily. Patient started on 50 mg and recommended to follow up with an outpatient psychiatrist. Patient has been cleared by PT and is medically stable. Patient has been discharged with rolling walker for use on regular ambulation and a cane for use when navigating stairs in her home. Patient has been accepted by [facility] for Home Physical Therapy services. 1) Please follow up with Dr. Hsu in his office within 7-10 days of discharge from the hospital. 2) Please get a referral from Dr. Hsu to see a psychiatrist as an outpatient. We recommend Dr. Wilfredo Lim. 3) Please use your rolling walker when you move around and please use your cane when you use the stairs. 4) We are discharging you with Zoloft 50 mg. Take 1 by mouth every day. It may be helpful to take it in the evening to aid with your sleep. 5) For your nasal irritation, you may purchase Claritin over the counter and use only as needed. 6) If you have any emergency symptoms such as chest pain or trouble breathing, please return to the emergency room. - Date & Time of H&P Date of H&P: 12/21/16 Time of H&P: 09:30 Discharge Exam - Head Exam Head Exam: ATRAUMATIC, NORMAL INSPECTION, NORMOCEPHALIC - Eye Exam Eye Exam: EOMI, PERRL - ENT Exam ENT Exam: Mucous Membranes Moist - Respiratory Exam Respiratory Exam: Clear to PA & Lateral. absent: Rales, Rhonchi, Wheezes - Cardiovascular Exam Cardiovascular Exam: REGULAR RHYTHM, +S1, +S2 - GI/Abdominal Exam GI & Abdominal Exam: Normal Bowel Sounds, Soft. absent: Tenderness - Extremities Exam Extremities exam: pedal pulses present - Neurological Exam Neurological exam: Alert, CN II-XII Intact, Oriented x3 Additional comments: Muscle strength of the lower extremities were 5/5 bilaterally throughout. - Skin Skin Exam: Dry, Intact, Normal Color, Warm Discharge Plan - Discharge Medications Prescriptions: Sertraline [Zoloft] 50 mg PO DAILY #30 tab - Follow Up Plan Condition: STABLE Disposition: HOME/ ROUTINE Instructions: Sertraline (By mouth), Weakness (GEN), Fall Prevention (DC) Additional Instructions: 1) Please follow up with Dr. Hsu in his office within 7-10 days of discharge from the hospital. 2) Please get a referral from Dr. Hsu to see a psychiatrist as an outpatient. We recommend Dr. Wilfredo Lim. 3) Please use your rolling walker when you move around and please use your cane when you use the stairs. 4) We are discharging you with Zoloft 50 mg. Take 1 by mouth every day. It may be helpful to take it in the evening to aid with your sleep. 5) For your nasal irritation, you may purchase Claritin over the counter and use only as needed. 6) If you have any emergency symptoms such as chest pain or trouble breathing, please return to the emergency room. Referrals: Wilfredo Ochoa MD [Staff Provider] - Jesus Elena MD [Staff Provider] - Stone Hsu MD [Staff Provider] - <Bert Nur - Last Filed: 12/21/16 19:36> Provider - Provider Date of Admission: 12/11/16 13:01 Attending physician: Gamaliel Chang MD Hospital Course - Lab Results Lab Results: Most Recent Lab Values WBC 5.9 K/uL (4.8-10.8) 12/14/16 07:03 RBC 3.93 Mil/uL (3.80-5.20) 12/14/16 07:03 Hgb 11.9 g/dL (11.0-16.0) 12/14/16 07:03 Hct 35.0 % (34.0-47.0) 12/14/16 07:03 MCV 89.0 fL (81.0-99.0) 12/14/16 07:03 MCH 30.3 pg (27.0-31.0) 12/14/16 07:03 MCHC 34.1 g/dL (33.0-37.0) 12/14/16 07:03 RDW 14.1 % (11.5-14.5) 12/14/16 07:03 Plt Count 251 K/uL (130-400) 12/14/16 07:03 MPV 9.4 fL (7.2-11.7) 12/14/16 07:03 Neut % (Auto) 60.6 % (50.0-75.0) 12/10/16 06:15 Lymph % (Auto) 29.7 % (20.0-40.0) 12/10/16 06:15 Lee % (Auto) 9.5 % (0.0-10.0) 12/10/16 06:15 Eos % (Auto) 0.0 % (0.0-4.0) 12/10/16 06:15 Baso % (Auto) 0.2 % (0.0-2.0) 12/10/16 06:15 Neut # 3.7 K/uL (1.8-7.0) 12/10/16 06:15 Lymph # 1.8 K/uL (1.0-4.3) 12/10/16 06:15 Lee # 0.6 K/uL (0.0-0.8) 12/10/16 06:15 Eos # 0.0 K/uL (0.0-0.7) 12/10/16 06:15 Baso # 0.0 K/uL (0.0-0.2) 12/10/16 06:15 ESR 23 mm/hr (0-20) H 12/10/16 06:15 Sodium 138 mmol/L (132-148) 12/14/16 07:03 Potassium 3.8 mmol/L (3.6-5.2) 12/14/16 07:03 Chloride 102 mmol/L (98-107) 12/14/16 07:03 Carbon Dioxide 27 mmol/L (22-30) 12/14/16 07:03 Anion Gap 12 (10-20) 12/14/16 07:03 BUN 9 mg/dL (7-17) 12/14/16 07:03 Creatinine 0.7 MG/DL (0.7-1.2) 12/14/16 07:03 Est GFR ( Amer) > 60 12/14/16 07:03 Est GFR (Non-Af Amer) > 60 12/14/16 07:03 POC Glucose (mg/dL) 89 mg/dL (65-110) 12/09/16 11:37 Random Glucose 87 mg/dL (65-105) 12/14/16 07:03 Calcium 8.7 mg/dl (8.6-10.4) 12/14/16 07:03 Phosphorus 3.7 mg/dL (2.5-4.5) 12/09/16 11:30 Magnesium 1.7 mg/dL (1.6-2.3) 12/14/16 07:03 Total Bilirubin 0.3 mg/dL (0.2-1.3) 12/14/16 07:03 AST 74 U/L (14-36) H D 12/14/16 07:03 ALT 82 U/L (9-52) H D 12/14/16 07:03 Alkaline Phosphatase 86 U/L (38-126) 12/14/16 07:03 Total Creatine Kinase 73 U/L (30-135) 12/09/16 11:30 C-React Prot High Sens 2.85 mg/L (1.00-3.00) 12/10/16 06:15 Total Protein 6.3 g/dL (6.3-8.3) 12/14/16 07:03 Albumin 3.4 g/dL (3.5-5.0) L 12/14/16 07:03 Globulin 2.9 gm/dL (2.2-3.9) 12/14/16 07:03 Albumin/Globulin Ratio 1.2 (1.0-2.1) 12/14/16 07:03 TSH 3rd Generation 1.09 mIU/L (0.46-4.68) 12/12/16 07:01 Urine Color Yellow (YELLOW) 12/09/16 11:36 Urine Clarity Clear (Clear) 12/09/16 11:36 Urine pH 5.0 (5.0-8.0) 12/09/16 11:36 Ur Specific [place] 1.005 (1.003-1.030) 12/09/16 11:36 Urine Protein Negative mg/dL (NEGATIVE) 12/09/16 11:36 Urine Glucose (UA) Normal mg/dL (Normal) 12/09/16 11:36 Urine Ketones Negative mg/dL (NEGATIVE) 12/09/16 11:36 Urine Blood 1+ (NEGATIVE) H 12/09/16 11:36 Urine Nitrate Negative (NEGATIVE) 12/09/16 11:36 Urine Bilirubin Negative (NEGATIVE) 12/09/16 11:36 Urine Urobilinogen Normal mg/dL (0.2-1.0) 12/09/16 11:36 Ur Leukocyte Esterase Neg Keila/uL (Negative) 12/09/16 11:36 Urine WBC (Auto) 2 /hpf (0-5) 12/09/16 11:36 Urine RBC (Auto) 8 /hpf (0-3) H 12/09/16 11:36 Ur Squamous Epith Cells 1 /hpf (0-5) 12/09/16 11:36 Urine HCG, Qual Negative (NEGATIVE) 12/09/16 12:26 Lyme Disease IgG Ab (IFA) Negative (NEGATIVE) 12/14/16 07:03 Lyme Disease IgM Ab Equivocal (NEGATIVE) 12/14/16 07:03 Attending/Attestation - Attestation I have personally seen and examined this patient.: Yes I have fully participated in the care of the patient.: Yes I have reviewed all pertinent clinical information, including history, physical exam and plan: Yes
[2016-12-22 07:25] LABS: LYME DISEASE SCREEN <0.90 index
== END 2016-12-21 12:31 | disposition home or self-care (01) | DRG 9 ==
LOC: C.ER 10:40 → C.9E 11:07 → C.3T 13:36 → OBSVTOIN 12-11 13:01 → C.3T 12-16 22:08
PROVIDERS: ADMIT Internal Medicine; ATTEND Internal Medicine
DX: G82.20 Paraplegia, unspecified (principal); F45.9 Somatoform disorder, unspecified; F43.0 Acute stress reaction; F12.90 Cannabis use, unspecified, uncomplicated; M62.838 Other muscle spasm; R51 Headache; R09.81 Nasal congestion; L29.9 Pruritus, unspecified